=== PATIENT | male | born 1960 | race Caucasian/White ===

== ENCOUNTER 2019-04-17 14:36 | Inpatient (IN) | payer OTHER ==
[~2019-04-17] VITALS: Ht 177.8 cm; Wt 90.7 kg
[~2019-04-17 14:36] MED LIST: ASPIRIN LOW DOS81 M1 PO; EZETIMIBE/SIMVA1 TA1 PO; LEXAPRO10 MG PO; METFORMIN500 M2 PO; OMEPRAZOLE20 M2 PO; VICODIN ES1 TA1 PO; VYTORIN 10/201 TAB PO
[2019-04-23] VITALS (8 sets, daily range): BP systolic 107–129; BP diastolic 59–69
[2019-04-24] VITALS: BP 96/54
[2019-04-24 04:00] VITALS: BP 94/57
[2019-04-24 05:09] LABS: IMMATURE GRANULOCYTES 0.2 % (0.0-5.0); MEAN CELL VOLUME 94.1 fL CALC (80.0-100.0); MEAN CORPUSCULAR HGB 30.6 pG CALC (26.0-32.0); MEAN CORPUSCULAR HGB CONC 32.5 g/L CALC (32.0-36.0); NEUT# 6.31 thou/uL (1.82-7.42); RED BLOOD COUNT 3.53 mill/uL (4.70-6.10); RED CELL DISTRI WIDTH 14.8 % (11.5-15.5)
[2019-04-24 05:11] LABS: HEMATOCRIT 33.2 % (39.0-50.0); HEMOGLOBIN 10.8 g/dl (14.0-18.0)
[2019-04-24 05:26] LABS: ANION GAP 11 (6-22 (CALC)); BUN 11 mg/dL (9-20); BUN/CREATININE RATIO 19 (12-20 (CALC)); CARBON DIOXIDE 24 mmol/l (22-30); CHLORIDE 101 mmol/l (95-108); CREATININE 0.6 mg/dL (0.7-1.3); GFR > 60 ML/MIN (>=60 (CALC)); GFR FOR AFR.AMER. > 60 ML/MIN (>=60 (CALC)); MAGNESIUM 1.9 mg/dL (1.6-2.3); POTASSIUM 3.9 mmol/l (3.5-5.1); SODIUM 132 mmol/l (137-146)
[2019-04-24 07:50] VITALS: BP 107/65
[2019-04-24 11:35] VITALS: BP 125/67
[2019-04-24 16:00] VITALS: BP 112/63
[2019-04-24 20:00] VITALS: BP 122/62
[2019-04-25] VITALS (7 sets, daily range): BP systolic 107–127; BP diastolic 61–77
[2019-04-25 06:14] LABS: HEMATOCRIT 33.2 % (39.0-50.0); HEMOGLOBIN 11.1 g/dl (14.0-18.0); MEAN CELL VOLUME 93.8 fL CALC (80.0-100.0); MEAN CORPUSCULAR HGB 31.4 pG CALC (26.0-32.0); MEAN CORPUSCULAR HGB CONC 33.4 g/L CALC (32.0-36.0); RED BLOOD COUNT 3.54 mill/uL (4.70-6.10); RED CELL DISTRI WIDTH 14.7 % (11.5-15.5)
[2019-04-25 06:38] LABS: ANION GAP 10 (6-22 (CALC)); BUN 9 mg/dL (9-20); BUN/CREATININE RATIO 17 (12-20 (CALC)); CARBON DIOXIDE 25 mmol/l (22-30); CHLORIDE 104 mmol/l (95-108); CREATININE 0.5 mg/dL (0.7-1.3); GFR > 60 ML/MIN (>=60 (CALC)); GFR FOR AFR.AMER. > 60 ML/MIN (>=60 (CALC)); MAGNESIUM 1.8 mg/dL (1.6-2.3); SODIUM 135 mmol/l (137-146)
[2019-04-26 03:30] VITALS: BP 115/69
[2019-04-26 05:03] LABS: HEMATOCRIT 32.2 % (39.0-50.0); HEMOGLOBIN 10.7 g/dl (14.0-18.0); MEAN CELL VOLUME 93.6 fL CALC (80.0-100.0); MEAN CORPUSCULAR HGB 31.1 pG CALC (26.0-32.0); MEAN CORPUSCULAR HGB CONC 33.2 g/L CALC (32.0-36.0); RED BLOOD COUNT 3.44 mill/uL (4.70-6.10); RED CELL DISTRI WIDTH 14.6 % (11.5-15.5)
[2019-04-26 07:48] VITALS: BP 119/75
[2019-04-26 11:19] VITALS: BP 111/68
[2019-04-26 12:35] LABS: URINE BILIRUBIN - DIPSTICK NEGATIVE (NEGATIVE); URINE BLOOD DIPSTICK NEGATIVE (NEGATIVE); URINE COLOR YELLOW; URINE GLUCOSE - DIPSTICK NEGATIVE (NEGATIVE); URINE KETONE NEGATIVE (NEGATIVE); URINE LEUK ESTERASE NEGATIVE (NEGATIVE); URINE NITRITE - DIPSTICK NEGATIVE (Negative); URINE PROTEIN - DIPSTICK NEGATIVE (NEG-TRACE)
== END 2019-04-26 14:28 | disposition home health service (06) | DRG 470 ==
LOC: MS2 04-23 07:07
PROVIDERS: Nurse Practitioner Family; ADMIT Internal Medicine; ATTEND Orthopaedic Surgery
PROC: 0SR904A Replacement of Right Hip Joint with Ceramic on Polyethylene Synthetic Substitute, Uncemented, Open Approach (ICD-10-PCS; principal; 2019-04-23)
DX: M16.11 Unilateral primary osteoarthritis, right hip (principal); E11.9 Type 2 diabetes mellitus without complications; F32.9 Major depressive disorder, single episode, unspecified; K21.9 Gastro-esophageal reflux disease without esophagitis; E78.5 Hyperlipidemia, unspecified; Z87.891 Personal history of nicotine dependence; Z79.84 Long term (current) use of oral hypoglycemic drugs
CPT/HCPCS: J0131; J2710

== ENCOUNTER 2021-11-02 07:04 | Day surgery (SDC) | payer OTHER ==
[~2021-11-02] VITALS: Ht 177.8 cm; Wt 111.1 kg
[~2021-11-02 07:04] MED LIST changes: +ATORVASTATIN CA40 MG PO; +NORVASC5 M1 PO; -OMEPRAZOLE20 M2 PO; +OMEPRAZOLE20 MG PO
[2021-11-02 10:53] VITALS: BP 109/61
== END 2021-11-02 11:01 | disposition home or self-care (01) | DRG 42 ==
LOC: ORM 07:04
PROVIDERS: ATTEND Orthopaedic Surgery
PROC: 01N50ZZ Release Median Nerve, Open Approach (ICD-10-PCS; principal; 2021-11-02)
DX: G56.03 Carpal tunnel syndrome, bilateral upper limbs (principal); E11.9 Type 2 diabetes mellitus without complications; Z87.891 Personal history of nicotine dependence; Z79.84 Long term (current) use of oral hypoglycemic drugs

== ENCOUNTER 2023-01-06 14:21 | Emergency (ER) | payer OTHER ==
[~2023-01-06] VITALS: Ht 177.8 cm; Wt 117.0 kg
[2023-01-06 14:51] LABS: BASO% 0.6 % (0-3); HEMATOCRIT 46.3 % (39.0-50.0); HEMOGLOBIN 15.2 g/dl (14.0-18.0); IMMATURE GRANULOCYTES 0.1 % (0.0-5.0); LYMPH% 24.7 % (15-41); MEAN CELL VOLUME 93.5 fL CALC (80.0-100.0); MEAN CORPUSCULAR HGB 30.7 pG CALC (26.0-32.0); MEAN CORPUSCULAR HGB CONC 32.8 g/dL CAL (32.0-36.0); MONO% 6.4 % (2-13); NEUT# 6.01 thou/uL (1.82-7.42); NEUT% 67.2 % (42-76); RED BLOOD COUNT 4.95 mill/uL (4.70-6.10); RED CELL DISTRI WIDTH 13.5 % (11.5-15.5)
[2023-01-06 15:14] LABS: ALKALINE PHOSPHATASE 86 u/l (38-126); ANION GAP 13 (6-22 (CALC)); BILIRUBIN, TOTAL 0.5 mg/dL (0.2-1.3); BUN 20 mg/dL (8-23); BUN/CREATININE RATIO 24 (12-20 (CALC)); CARBON DIOXIDE 23 mmol/l (22-30); CHLORIDE 105 mmol/l (95-108); CREATININE 0.8 mg/dL (0.7-1.3); GFR FOR AFR.AMER. > 60 ML/MIN (>=60 (CALC)); GFR OTHER RACES > 60 ML/MIN (>=60 (CALC)); LIPASE 92 u/l (23-300); POTASSIUM 4.1 mmol/l (3.5-5.1); SGOT/AST 31 u/l (19-48); SODIUM 138 mmol/l (137-146); TOTAL PROTEIN 7.5 g/dL (6.3-8.2)
[2023-01-06 15:22] LABS: ALBUMIN 4.5 g/dL (3.2-5.0)
[2023-01-06 16:56] VITALS: BP 131/78
== END 2023-01-06 17:02 | disposition left against medical advice (07) | DRG 313 ==
LOC: ED 14:21
PROVIDERS: Nurse Practitioner
DX: R07.9 Chest pain, unspecified (principal); I10 Essential (primary) hypertension; E11.9 Type 2 diabetes mellitus without complications; E78.00 Pure hypercholesterolemia, unspecified; Z53.29 Procedure and treatment not carried out because of patient's decision for other reasons